=== PATIENT | female | born 1995 | race Caucasian/White ===

== ENCOUNTER → 2017-05-24 | Outpatient (CLI) | payer OTHER ==
--- NOTE | 2017-05-24 17:36 | Diagnostic Imaging Report ---
INDICATION: Right flank pain. Two views were obtained. FINDINGS: The lung bases are clear. Bowel gas pattern is nonspecific. There is no free air. There are no abnormal abdominal calcifications. IMPRESSION: Nonspecific bowel gas pattern. Dictated by: Dictated on workstation # [id number]
[2017-05-24 17:48] LABS: BILIRUBIN,URINE NEGATIVE (NEGATIVE); KETONES,URINE NEGATIVE (NEGATIVE); LEUKOCYTE ESTERASE ,URINE 2+ (NEGATIVE); NITRITE,URINE NEGATIVE (NEGATIVE); PH,URINE 8 (5-9); PROTEIN,URINE NEGATIVE (NEGATIVE); UROBILINOGEN,URINE NORMAL (NORMAL)
== END ==
LOC: LAB 17:05
PROVIDERS: ATTEND Nurse Practitioner Family
DX: R53.83 Other fatigue (principal); R53.81 Other malaise; R68.83 Chills (without fever); R10.31 Right lower quadrant pain
CPT/HCPCS: 36415; 74000; 81000; 86618; 86666; 86668; 86757; 87088